=== PATIENT | female | born 1995 | race American Indian/Alaskan Native ===

== ENCOUNTER 2018-04-10 19:29 | Emergency (ER) | payer SELFPAY ==
[2018-04-10 19:52] VITALS: BP 136/64
== END 2018-04-11 00:31 | disposition left against medical advice (07) ==
LOC: ED 19:29
DX: J02.9 Acute pharyngitis, unspecified (principal); Z53.21 Procedure and treatment not carried out due to patient leaving prior to being seen by health care provider

== ENCOUNTER 2018-04-12 21:25 | Emergency (ER) | payer MEDICAID ==
[2018-04-12 21:36] VITALS: BP 137/74
--- NOTE | 2018-04-12 22:07 | Emergency Department Report ---
Minor Respiratory - HPI Chief Complaint: Sore Throat Stated Complaint: SORE THROAT,HEADACHE Time Seen by Provider: 04/12/18 22:00 Duration: one week Pain Location: Throat Severity: mild Minor Respiratory: Yes Rhinorrhea, Yes Sore Throat, Yes Able to Tolerate Fluids , No Ear Pain, No Cough, No Sick Contacts, No Hemoptysis, No Chest Pain, No Shortness of Breath, No Fever Other History: This is a 22-year-old -[place] female who presents with the sore throat and headache for one week. She is currently taking Aleve but no improvement in symptoms. Patient reports no contact with any sick contacts. She is having some pain with swallowing but she is able to tolerate fluids and solid foods. Denies fever, chest pain, difficulty swallowing, shortness of breath, nausea or vomiting, and body aches. ED Review of Systems ROS: Stated complaint: SORE THROAT,HEADACHE Other details as noted in HPI Constitutional: denies: chills, fever ENT: throat pain, congestion. denies: ear pain Respiratory: denies: cough, shortness of breath, wheezing Cardiovascular: denies: chest pain, palpitations Gastrointestinal: denies: abdominal pain, nausea, vomiting, diarrhea Neurological: headache. denies: weakness, paresthesias Psychiatric: denies: anxiety, depression ED Past Medical Hx - Past Medical History Previous Medical History?: Yes Hx Psychiatric Treatment: Yes (Anxiety) Additional medical history: anxiety - Surgical History Past Surgical History?: No - Social History Smoking Status: Never Smoker Substance Use Type: None - Medications Home Medications: Home Medications Medication Instructions Recorded Confirmed Last Taken Type LORazepam [Ativan] 1 mg PO QDAY PRN #12 tab 03/12/14 09/24/16 Unknown Rx Amoxicillin/Potassium Clav 1 each PO BID 5 Days #10 tablet 04/12/18 Unknown Rx [Augmentin 875-125 Tablet] Fluticasone [Flonase] 1 spray NS QDAY #1 bottle 04/12/18 Unknown Rx guaiFENesin [Guaifenesin] 400 mg PO BID 5 Days #10 tablet 04/12/18 Unknown Rx Minor Respiratory Exam - Exam General: Vital signs noted. No distress. Alert and acting appropriately. HEENT: Yes Pharyngeal Erythema, Yes Moist Mucous Membranes, Yes Rhinorrhea ( turbinates mildly congested bilaterally with clear discharge), Yes Maxillary Tenderness, No Pharyngeal Exudates (tonsils enlarged, no exudate, uvula midline) , No Conjuctival Injection, No Frontal Tenderness Ear: Neither TM Bulge, Neither TM Erythema, Neither EAC Pain, Neither EAC Discharge Neck: Yes Supple, No Adenopathy Lungs: Yes Good Air Exchange, No Wheezes, No Ronchi, No Stridor, No Cough, No Labored Respirations, No Retractions, No Use of Accessory Muscles, No Other Abnormal Lung Sounds Heart: Yes Regular, No Murmur Abdomen: Yes Normal Bowel Sounds, No Tenderness, No Peritoneal Signs Skin: No Rash, No Edema Neurologic: Alert and oriented, no deficits. Musculoskeletal: Unremarkable. ED Course Vital Signs 04/12/18 21:30 Temperature 99.6 F Pulse Rate 81 Respiratory 18 Rate Blood Pressure 137/74 O2 Sat by Pulse 100 Oximetry ED Medical Decision Making - Medical Decision Making This is a 22-year-old female presents with sore throat and headache for one week. Patient examined by me and stable. No distress noted. Rapid strep obtained and negative for strep. Vitals stable. Start Augmentin, Flonase, guaifenesin for sinusitis. Take tylenol or ibuprofen for pain. Discussed plan with patient and she agreed with plan to treat outpatient. Discharged home. Return to work tomorrow. Follow up with PCP in 48-72 hours. Critical care attestation.: If time is entered above; I have spent that time in minutes in the direct care of this critically ill patient, excluding procedure time. ED Disposition Clinical Impression: Sinusitis Qualifiers: Sinusitis location: maxillary Chronicity: acute Recurrence: non-recurrent Qualified Code(s): J01.00 - Acute maxillary sinusitis, unspecified Disposition: - TO HOME OR SELFCARE Is pt being admited?: No Does the pt Need Aspirin: No Condition: Stable Instructions: Sinusitis (ED) Additional Instructions: Complete full course of antibiotics. Use Flonase or nasal saline as needed for congestion. Take Mucinex for improve congestion. Expect symptoms to improve within 3 or 4 days. There is no need for bed rest or isolation. Use tyleonl or ibuprofen for symptoms of sore throat, headache, and fever. Follow up with Primary Care Provider in 48-72 hours. Prescriptions: Amoxicillin/Potassium Clav [Augmentin 875-125 Tablet] 1 each PO BID 5 Days #10 tablet Fluticasone [Flonase] 1 spray NS QDAY #1 bottle guaiFENesin [Guaifenesin] 400 mg PO BID 5 Days #10 tablet Referrals: [facility] [Outside] - 3-5 Days [facility] [Outside] - 3-[address] [facility] [Outside] - 3-5 Days Time of Disposition: 23:30 Print Language: CITIZEN OF [place]
== END 2018-04-12 23:30 | disposition home or self-care (01) ==
LOC: ED 21:25
DX: J01.00 Acute maxillary sinusitis, unspecified (principal); F41.9 Anxiety disorder, unspecified; Z79.899 Other long term (current) drug therapy
CPT/HCPCS: 87116; 87430; 99283

== ENCOUNTER 2019-02-27 14:04 | Emergency (ER) | payer SELFPAY ==
[2019-02-27 14:18] VITALS: BP 137/80
--- NOTE | 2019-02-27 14:34 | Emergency Department Report ---
Blank Doc - Documentation Documentation: Patient c/o cp sob and cp. Pain with breathing in and coughing. H/o asthma and had last attack 3 weeks. Pt has h/o asthma and asthma. Used a brown paper bag to help with asthma. Denied anxiety attack. Out of albuterol Lungs-CTAB Normal WOB. Positive cough Psych: calm and relaxed A/P URI cough CP Xray, EKG sr
--- NOTE | 2019-02-27 15:29 | XRay Report ---
. PROCEDURE: XR CHEST ROUTINE 2V TECHNIQUE: Chest, PA and lateral HISTORY: cough, cp COMPARISON: None FINDINGS: The heart size is normal. There is no pulmonary vascular congestion seen. Mediastinal contours are normal. Lungs are clear. There is no pleural effusion seen. There is no pneumothorax seen. IMPRESSION: No acute abnormality identified. This document is electronically signed by Melony Barnes MD., February 27 2019 03:27:21 PM ET
[2019-02-27] MEDS ORDERED: VISTARIL PO ONE (16:20)
[2019-02-27] MEDS ORDERED: DELTASONE PO ONE (16:20)
[2019-02-27] MEDS ORDERED: PROVENTIL IH ONE (16:20)
--- NOTE | 2019-02-27 16:20 | Emergency Department Report ---
Minor Respiratory - HPI Chief Complaint: Upper Respiratory Infection Stated Complaint: CHEST PAIN/DIZZINESS/SOB Time Seen by Provider: 02/27/19 14:29 Duration: 3 Days Pain Location: Throat, Chest Severity: mild Minor Respiratory: Yes Able to Tolerate Fluids, Yes Cough, Yes Chest Pain (w cough), Yes Shortness of Breath, No Rhinorrhea, No Sore Throat, No Ear Pain, No Sick Contacts, No Hemoptysis, No Fever Other History: 23 yo AA female with hx of asthma, during pollen season, of cough, wheezing. ambulatory. afebrile. cp with cough and wheezing only. ED Review of Systems ROS: Stated complaint: CHEST PAIN/DIZZINESS/SOB Other details as noted in HPI Comment: All other systems reviewed and negative Constitutional: see HPI. denies: chills Eyes: denies: eye pain ENT: as per HPI Respiratory: see HPI, cough, wheezing Cardiovascular: as per HPI, chest pain. denies: palpitations Endocrine: denies: flushing Gastrointestinal: denies: abdominal pain Genitourinary: denies: urgency Musculoskeletal: denies: as per HPI Skin: denies: rash Neurological: denies: weakness Psychiatric: denies: depression Hematological/Lymphatic: denies: easy bleeding ED Past Medical Hx - Past Medical History Previous Medical History?: Yes Hx Psychiatric Treatment: Yes (Anxiety) Additional medical history: anxiety - Surgical History Past Surgical History?: No - Family History Family history: no significant - Social History Smoking Status: Never Smoker - Medications Home Medications: Home Medications Medication Instructions Recorded Confirmed Last Taken Type Albuterol Sulfate [Ventolin HFA] 2 puff IH Q4H PRN #1 hfa.aer.ad 02/27/19 Unknown Rx Benzonatate [Tessalon Perles] 100 mg PO Q12H PRN #20 capsule 02/27/19 Unknown Rx Cetirizine HCl [ZyrTEC] 10 mg PO DAILY #30 capsule 02/27/19 Unknown Rx Fluticasone [Flonase] 1 spray NS QDAY #1 bottle 02/27/19 Unknown Rx predniSONE [Deltasone] 20 mg PO DAILY #5 tablet 02/27/19 Unknown Rx Minor Respiratory Exam - Exam General: Vital signs noted. No distress. Alert and acting appropriately. HEENT: Yes Pharyngeal Erythema, Yes Moist Mucous Membranes, No Pharyngeal Exudates, No Rhinorrhea, No Conjuctival Injection, No Frontal Tenderness, No Maxillary Tenderness Ear: Neither TM Bulge, Neither TM Erythema, Neither EAC Pain, Neither EAC Discharge Neck: Yes Supple, No Adenopathy Lungs: Yes Good Air Exchange, Yes Wheezes (b), Yes Cough, No Ronchi, No Stridor, No Labored Respirations, No Retractions, No Use of Accessory Muscles, No Other Abnormal Lung Sounds Heart: Yes Regular, No Murmur Abdomen: Yes Normal Bowel Sounds, No Tenderness, No Peritoneal Signs Skin: No Rash, No Edema Neurologic: Alert and oriented, no deficits. Musculoskeletal: Unremarkable. ED Course Vital Signs 02/27/19 14:17 Temperature 98.6 F Pulse Rate 99 H Respiratory 18 Rate Blood Pressure 137/80 O2 Sat by Pulse 100 Oximetry ED Medical Decision Making - Radiology Data Radiology results: report reviewed, image reviewed nap - Medical Decision Making 23 year old cough wheezing HR on exam 90 no fever no sputum pollen season off her meds non toxic ambulatory medicated in ER and dc home with dc poc [facility] asthma anxiety Vital Signs 02/27/19 14:17 Temperature 98.6 F Pulse Rate 99 H Respiratory 18 Rate Blood Pressure 137/80 O2 Sat by Pulse 100 Oximetry - Differential Diagnosis simple urti Critical care attestation.: If time is entered above; I have spent that time in minutes in the direct care of this critically ill patient, excluding procedure time. ED Disposition Clinical Impression: Asthma with acute exacerbation Disposition: DC-01 TO HOME OR SELFCARE Is pt being admited?: No Does the pt Need Aspirin: No Condition: Stable Instructions: Asthma (ED) Additional Instructions: DIET TOLERATED MEDS ORDERED FOLLOW UP PCP REFERRAL BELOW ACTIVITY TOLERATED HYDRATE WELL WITH WATER Prescriptions: predniSONE [Deltasone] 20 mg PO DAILY #5 tablet Fluticasone [Flonase] 1 spray NS QDAY #1 bottle Benzonatate [Tessalon Perles] 100 mg PO Q12H PRN #20 capsule PRN Reason: Cough Albuterol Sulfate [Ventolin HFA] 2 puff IH Q4H PRN #1 hfa.aer.ad PRN Reason: Shortness Of Breath Cetirizine HCl [ZyrTEC] 10 mg PO DAILY #30 capsule Referrals: TIEN BURDEN MD [Primary Care Provider] - 3-5 Days Time of Disposition: 16:31
== END 2019-02-27 16:57 | disposition home or self-care (01) ==
LOC: ED 14:04
DX: J45.901 Unspecified asthma with (acute) exacerbation (principal); F41.9 Anxiety disorder, unspecified
CPT/HCPCS: 71046; 93005; 93010; 94640; 99283; J7512; Q0177